=== PATIENT | female | born 1970 | race African-American/Black ===

== ENCOUNTER 2016-06-16 17:42 | Emergency (ER) | payer OTHER ==
[~2016-06-16] VITALS: Ht 182.9 cm; Wt 106.6 kg
[~2016-06-16 17:42] MED LIST: "\\\"MUSCLE RELAXER\\\"" PO; AMOXICILLIN500 M1 PO; DIAZEPAM5 MG PO; FLEXERIL5 MG PO; LIDODERM 5% P1 PATCH TD; METHADONE10 MG PO; MOTRIN800 MG PO; NAPROSYN500 MG PO; NAPROXEN500 MG PO; NO MEDS; NOHOMEMEDS; PEN-VEE K,VEET500 MG PO; PERCOCET 5/31 TABLET PO; PERCOCET 7.5-51 EACH PO; PERCOCET 7.51 TABLET PO; SKELAXIN800 MG PO; TRAMADOL PO; VALIUM5 MG PO
[2016-06-16] MEDS ORDERED: ENDOCET 5-3251 EACH PO (19:07)
[2016-06-16 19:44] VITALS: BP 161/87
== END 2016-06-16 19:45 | disposition home or self-care (01) ==
LOC: EME 17:42
DX: G89.29 Other chronic pain (principal); G71.0 Muscular dystrophy; M54.5 Low back pain; R11.10 Vomiting, unspecified; M79.604 Pain in right leg; M79.605 Pain in left leg; Z79.891 Long term (current) use of opiate analgesic; F17.200 Nicotine dependence, unspecified, uncomplicated
CPT/HCPCS: 99281; 99284

== ENCOUNTER 2017-01-06 10:37 | Emergency (ER) | payer OTHER ==
[~2017-01-06] VITALS: Ht 182.9 cm; Wt 103.9 kg
[~2017-01-06 10:37] MED LIST changes: +ENDOCET 5-3251 EACH PO
[2017-01-06 12:31] LABS: HEMATOCRIT 29.1 % (36.0-46.0); MCH 21.2 PG (29.0-34.0); MCHC 29.6 G/DL (30.0-36.0); MCV 71.9 FL (83-99); MEAN PLAT.VOLUME 10.5 uM^3 (9.5-12.4); PLATELET COUNT 264 K/uL (156-360); RBC DIS.WIDTH-CV 17.5 % (11.8-14.6); RBC DIS.WIDTH-SD 45.5 % (39-53); RED BLOOD COUNT 4.05 M/uL (3.80-5.20); WHITE BLOOD COUNT 6.4 K/uL (4.1-10.2)
[2017-01-06 12:35] LABS: CHLORIDE 107 mEq/L (99-109); POTASSIUM 3.6 mEq/L (3.7-5.4); SODIUM 139 mEq/L (136-147)
[2017-01-06 12:36] LABS: GLUCOSE 85 mg/dL (70-99)
[2017-01-06 12:38] LABS: ANION GAP 10 MEQ/L (2-14)
[2017-01-06 12:40] LABS: GFR ESTIMATE (CALCULATED) > 59 mL/min/
[2017-01-06 12:41] LABS: UREA NITROGEN (BUN) 6 mg/dL (9-23)
[2017-01-06 12:43] LABS: LIPASE 28 U/L (1.0-51.0)
[2017-01-06 12:45] LABS: TROP-I INTERPRETATION NEGATIVE; TROPONIN-I < 0.01 ng/mL (0.0-0.30)
[2017-01-06 12:53] LABS: QUANTITATIVE HCG < 4.0 MIU/ML
[2017-01-06] MEDS ORDERED: ZOFRAN ODT4 MG PO (13:31)
[2017-01-06 13:54] VITALS: BP 152/97
== END 2017-01-06 14:10 | disposition left against medical advice (07) ==
LOC: EME 10:37
DX: R07.9 Chest pain, unspecified (principal); R10.13 Epigastric pain; F17.200 Nicotine dependence, unspecified, uncomplicated; G71.0 Muscular dystrophy; Z88.6 Allergy status to analgesic agent; Z88.1 Allergy status to other antibiotic agents
CPT/HCPCS: 71020; 80048; 83690; 84484; 84702; 85027; 93005; 99281; 99284; J1885

== ENCOUNTER 2017-02-09 13:39 | Emergency (ER) | payer OTHER ==
[~2017-02-09] VITALS: Ht 182.9 cm; Wt 101.2 kg
[~2017-02-09 13:39] MED LIST changes: +ZOFRAN ODT4 MG PO
[2017-02-09] MEDS ORDERED: INDOCIN50 MG PO (14:25)
[2017-02-09] MEDS ORDERED: CLEOCIN300 MG PO (14:25)
[2017-02-09 14:53] VITALS: BP 152/98
== END 2017-02-09 14:54 | disposition home or self-care (01) ==
LOC: EME 13:39
DX: K08.89 Other specified disorders of teeth and supporting structures (principal); F17.200 Nicotine dependence, unspecified, uncomplicated; Z88.0 Allergy status to penicillin; Z91.040 Latex allergy status
CPT/HCPCS: 99281; 99284

== ENCOUNTER 2017-12-05 20:16 | Emergency (ER) | payer OTHER ==
[~2017-12-05] VITALS: Ht 182.9 cm; Wt 79.7 kg
[~2017-12-05 20:16] MED LIST changes: +CLEOCIN300 MG PO; +INDOCIN50 MG PO
[2017-12-05 21:04] LABS: HEMATOCRIT 27.1 % (36.0-46.0); HEMOGLOBIN 7.7 G/DL (11.9-15.5); MCH 18.3 PG (29.0-34.0); MCHC 28.4 G/DL (30.0-36.0); MCV 64.5 FL (83-99); RBC DIS.WIDTH-CV 20.6 % (11.8-14.6); RBC DIS.WIDTH-SD 46.7 % (39-53); WHITE BLOOD COUNT 5.7 K/uL (4.1-10.2)
[2017-12-05 21:12] LABS: CHLORIDE 108 mEq/L (99-109); POTASSIUM 3.2 mEq/L (3.7-5.4); SODIUM 139 mEq/L (136-147)
[2017-12-05 21:14] LABS: GLUCOSE 93 mg/dL (70-99)
[2017-12-05 21:18] LABS: CREATININE 0.7 mg/dL (0.6-1.3); GFR ESTIMATE (CALCULATED) > 59 mL/min/
[2017-12-05 21:19] LABS: UREA NITROGEN (BUN) 6 mg/dL (9-23)
[2017-12-05 21:39] LABS: HEMATOLOGY COMMENT 1 SN; PLAT.SUFFICIENCY ADEQUATE; PLATELET COUNT 318 K/uL (156-360)
[2017-12-05 22:38] LABS: QUANTITATIVE HCG < 4.0 MIU/ML
[2017-12-05 22:39] LABS: TROP-I INTERPRETATION NEGATIVE; TROPONIN-I < 0.01 ng/mL (0.0-0.30)
[2017-12-05] MEDS ORDERED: K-DUR20 MEQ PO (22:50)
[2017-12-05] MEDS ORDERED: PERCOCET 10/1 TABLET PO (22:50)
[2017-12-05] MEDS ORDERED: LYRICA50 MG PO (22:50)
[2017-12-05] MEDS ORDERED: FERATE240 M1 PO (23:19)
[2017-12-05 23:32] VITALS: BP 130/89
== END 2017-12-05 23:33 | disposition home or self-care (01) ==
LOC: EME 20:16
DX: G71.0 Muscular dystrophy (principal); G89.29 Other chronic pain; R20.2 Paresthesia of skin; R51 Headache; R11.2 Nausea with vomiting, unspecified; R19.7 Diarrhea, unspecified; M79.601 Pain in right arm; M79.602 Pain in left arm; I45.10 Unspecified right bundle-branch block; Z79.891 Long term (current) use of opiate analgesic; F17.200 Nicotine dependence, unspecified, uncomplicated
CPT/HCPCS: 70450; 71046; 80048; 84484; 84702; 85027; 93005; 99281; 99284